=== PATIENT | male | born 1970 | race Caucasian/White ===

== ENCOUNTER 2023-10-07 08:13 | Emergency (ER) | payer OTHER, SELFPAY ==
[2023-10-07 08:13] VITALS: BP 122/84; PULSE 60; RESP 14; TEMP 36.1; O2SAT 98; BMI 25.7
--- NOTE | 2023-10-07 08:27 | EX.ED.UPPERE ---
HPI History of Present Illness Chief Complaint: Upper Extremity Injury Informant: patient and spouse/S.O. Narrative Narrative: 52-year-old male presenting to the emergency room chief complaint of fall and shoulder pain. Patient states he was about 3 feet off the ground when he went to step off and missed the step. He fell and impacted his right shoulder. He notes he is right-handed. He denies any elbow hand or wrist symptoms. Patient states this morning it was still very painful and hard for him to lift the arm. He denies other injuries [facility] Medical History Muscular dystrophy Home Medications ?Medication ?Instructions ?Recorded ?Last Taken ?Type oxycodone-acetaminophen 5 mg-325 1 tab PO Q6H PRN PRN Pain 3 days 10/07/23 Unknown Rx mg tablet #12 TABLETS Allergy/AdvReac Type Severity Reaction Status Date / Time No Known Allergies Allergy Verified 10/07/23 08:14 Social History Smoking Status: Never smoker ROS ROS ED Constitutional Constitutional ED: Denies chills or weight loss Eyes Eyes: Denies change in vision or diplopia ENT ENT ED: Denies ear pain, rhinorrhea or sore throat Cardiovascular Cardiovascular: Denies chest pain, orthopnea, palpitations or racing heartbeat Respiratory/Chest Respiratory/Chest: Denies cough, dyspnea or orthopnea Gastrointestinal Gastrointestinal: Denies abdominal pain, diarrhea, nausea or vomiting Genitourinary Genitourinary ED: Denies dysuria, hematuria or urinary frequency Musculoskeletal Musculoskeletal: Reports other Details: right shoulder pain ; Denies arthralgias or myalgias Integumentary Denies abscess or rash Neurologic Neurologic: Denies headache(s) or weakness Psychiatric Psychiatric: Denies anxiety, depression, suicidal ideation or suicidal thoughts Endocrine Endocrinology: Denies polydipsia, polyphagia or polyuria Allergic/Immunologic Allergic/Immunologic ED: Denies mouth swelling, tongue swelling or urticaria EXAM Physical Exam Const Vital Signs: 10/07/23 08:13 Temperature 97 F L Temperature Source Temporal Pulse Rate 60 Respiratory Rate 14 Blood Pressure 122/84 H Blood Pressure Mean 96 Pulse Ox 98 Oxygen Delivery Method Room Air Positive well nourished and well developed General Appearance ED: well developed and NAD HEENT Reports normocephalic, head/scalp atraumatic and moist mucous membranes Eyes PERRL and EOMs intact bilaterally Neck no lymphadenopathy, supple and no JVD Chest Wall inspection of chest normal and palpation of chest normal Resp normal respiratory effort and clear to auscultation bilaterally Cardio regular rate, regular rhythm and no murmurs GI normal to inspection, nondistended, normoactive bowel sounds and non-tender Palpation: soft Back/Spine no CVA tenderness and normal ROM Extremity Extremity Narrative: Proximal right humerus and shoulder region demonstrates swelling and ecchymosis over the anterior humeral shaft. Limited range of motion secondary to pain. No pain upon palpation or neurologic/function findings at the elbow hand and wrist. I do not appreciate breaks in the skin. General Extremety ED: Negative for edema General Extremity: Negative for edema Neuro oriented x3 and CN's II-XII intact bilaterally Sensorium / Orientation: alert Motor Exam: strength 5/5 throughout Psych mental status grossly normal Mood & Affect: Negative for depressed or tearful Skin no rashes or lesions noted and no wounds MDM MDM MDM Narrative Medical decision making narrative: Differential diagnosis includes but not limited to humerus fracture clavicular fracture scapular fracture rotator cuff injury chest trauma sprain strain. My independent interpretation of the plain films of the right humerus shows acute fractures of the proximal humerus is nondisplaced. However pain medications and placed in a sling. He states he has been seen by [facility] in the past. History & Record Review Discussion w/independent historian: Patient Lab Data Lab results narrative: Clinical Impression(s) from Imaging Studies Humerus X-Ray 10/07/23 08:30 IMPRESSION: Slightly impacted transverse fracture through the surgical neck of the right humerus. Electronically Signed: Allan Romero MD at 8:54 EDT , Discharge Plan Triage Chief Complaint: Upper Extremity Injury ED Provider: Gallo Houston Dx/Rx/DC Orders Clinical Impression: Closed right humeral fracture, Fall Instructions: Understanding a Humerus Fracture Prescriptions: New oxycodone-acetaminophen 5-325 mg tablet 1 tab PO Q6H PRN PRN (Reason: Pain) 3 Days Qty: 12 0RF Primary Care Provider: Care Physician,No Primary Referrals: Barrett Hogan MD [Med Staff - Active Staff] - As soon as possible Print Language: Turkmen Disposition Disposition: Home, Self Care
--- NOTE | 2023-10-07 08:30 | RAD_ITS ---
STUDY: X-RAY - RIGHT HUMERUS REASON FOR EXAM: Male, 52 years old. Injury. TECHNIQUE: 4 views of the right humerus. COMPARISON: None. FINDINGS: There is a slightly impacted transverse fracture through the surgical neck of the right humerus. Normal remainder of the visualized humerus. There is no demonstrated soft tissue abnormality. RAD/Humerus min 2 Views IMPRESSION: Slightly impacted transverse fracture through the surgical neck of the right humerus. Electronically Signed: Allan Romero MD at 8:54 EDT ,
[2023-10-07 09:04] VITALS: BP 122/86; PULSE 55; RESP 16; TEMP 36.1; O2SAT 98
== END 2023-10-07 09:05 | disposition home or self-care (01) ==
LOC: ED 08:49
PROVIDERS: Emergency Provider Emergency Medicine; Visit Provider Emergency Medicine
DX: S42.301A Unspecified fracture of shaft of humerus, right arm, initial encounter for closed fracture (principal); W10.9XXA Fall (on) (from) unspecified stairs and steps, initial encounter
CPT/HCPCS: 73060; 99283